=== PATIENT | female | born 2000 | race Two or more races ===

== ENCOUNTER → 2024-04-19 | Outpatient (CLI) | payer MEDICAID, SELFPAY ==
--- NOTE | 2024-04-19 16:20 | XR_ITS ---
Examination: Complete OB ultrasound greater than 14 weeks Date and time of exam: April 19, 2024 1632 hours INDICATIONS: Diagnosis supervision of normal Findings: Viable intrauterine single fetus with single amniotic sac presentation breech Cardiac motion 1:30 BPM Placenta anterior grade 2 Umbilical cord insertion 3 vessel seen Adequate amniotic fluid spine anterior Cervix 3.8 cm Ovaries obscured by bowel gas. Composite estimated gestational age based on BPD, head circumference, abdominal circumference, femur length is 22 weeks 4 days Estimated weight 481 g. Survey of intracranial anatomy, spinal anatomy, abdominal anatomy, four-chamber heart performed with no abnormalities identified. Impression: Viable intrauterine gestation breech presentation.
== END | disposition home or self-care (01) ==
LOC: CDIM 16:16
PROVIDERS: Referring Provider Obstetrics & Gynecology; Visit Provider Obstetrics & Gynecology
DX: O32.1XX0 Maternal care for breech presentation, not applicable or unspecified (principal); Z3A.22 22 weeks gestation of pregnancy
CPT/HCPCS: 76805

== ENCOUNTER 2024-08-06 11:05 | Observation (INO) | payer MEDICAID, SELFPAY ==
[2024-08-06] VITALS (22 sets, daily range): BP systolic 109–136; BP diastolic 64–87; PULSE 44–78; O2SAT 85–98; BMI 46.5
--- NOTE | 2024-08-06 12:25 | XR_ITS ---
EXAMINATION: US OB biophysical profile ORDERING PROVIDER: Sylvester Muñoz MD HISTORY: variable in tracing TECHNIQUE: Multiple transabdominal sonographic images were obtained by interventional radiology technologist and submitted for interpretation. COMPARISON: 04/19/2024, OB ultrasound. FINDINGS: FETUS: [place]. PRESENTATION: Cephalic. HEART MOTION: 148 beats/min. AMNIOTIC FLUID INDEX: 10.4 cm BREATHING MOVEMENT: 2 . GROSS BODY MOVEMENT: 2 . TONE: 2 . QUALITATIVE AMNIOTIC FLUID VOLUME: 2 TOTAL BIOPHYSICAL PROFILE: 8 of 8 . IMPRESSION: Single live intrauterine gestation with biophysical profile 8 of 8.
== END 2024-08-06 13:15 | disposition home or self-care (01) ==
PROVIDERS: Admitting Provider Obstetrics & Gynecology; Visit Provider Obstetrics & Gynecology
DX: Z34.83 Encounter for supervision of other normal pregnancy, third trimester (principal); Z3A.38 38 weeks gestation of pregnancy
CPT/HCPCS: 59025; 59899; 76819

== ENCOUNTER 2024-08-08 05:25 | Observation (INO) | payer MEDICAID, SELFPAY ==
[2024-08-08 05:30] VITALS: BMI 46.9
[2024-08-08 05:31] VITALS: TEMP 36.8
[2024-08-08 05:38] VITALS: BP 126/82; PULSE 75; RESP 18; RESP 98; TEMP 36.8
== END 2024-08-08 06:13 | disposition home or self-care (01) ==
PROVIDERS: Admitting Provider Obstetrics & Gynecology; Visit Provider Obstetrics & Gynecology
DX: O36.8130 Decreased fetal movements, third trimester, not applicable or unspecified (principal); O46.93 Antepartum hemorrhage, unspecified, third trimester; Z3A.38 38 weeks gestation of pregnancy
CPT/HCPCS: 59899

== ENCOUNTER 2024-08-10 14:02 | Inpatient (IN) | payer MEDICAID, SELFPAY ==
[2024-08-10] VITALS (40 sets, daily range): BP systolic 109–189; BP diastolic 56–123; PULSE 71–128; RESP 16–99; TEMP 36.5–36.7; O2SAT 93–98
--- NOTE | 2024-08-10 12:37 | XR_ITS ---
Examination: Biophysical profile, ultrasound Date and time of exam: August 10, 2024 1255 hours INDICATIONS: Abnormal heart tracing today Technique: Multiple transabdominal sonographic images of the pelvis abdomen obtained. Attention is directed to the breathing movement, gross body movement, amniotic fluid volume and tone. Findings: Amniotic fluid index 8.9 cm Cardiac motion 140 BPM Total biophysical profile is 8 of 8. breathing movement is 2. Gross body movement is 2. tone is 2. Qualitative amniotic fluid volume is 2 Impression: Biophysical profile is 8 of 8.
[2024-08-10 15:07] LABS: Basophils % (Auto) 0 % (0-2.5); Eosinophils # (Auto) 0.1 Thou/mm3 (0.0-0.5); Eosinophils % (Auto) 1 % (0-10); Hematocrit 40.4 % (36.0-46.0); Hemoglobin 14.2 g/dL (12.0-16.0); Immature Granulocytes % (Auto) 1 % (0-0); Immature Granulocytes Auto 0.05 Thou/mm3 (0.00-0.00); Lymphocytes % (Auto) 19 % (10-50); Mean Corpuscular HGB Conc 35.1 g/dl (31.0-37.0); Mean Corpuscular Hemoglobin 31.3 pg (25.0-35.0); Mean Corpuscular Volume 89 fL (80-100); Monocytes # (Auto) 0.7 Thou/mm3 (0.0-0.8); Monocytes % (Auto) 7 % (0-12); Neutrophils # (Auto) 7.9 Thou/mm3 (1.8-7.7); Neutrophils % (Auto) 73 % (37-80); Nucleated Red Blood Cell % 0 /100 WBC (0); Platelet Count 245 Thou/mm3 (140-440); RDW Standard Deviation 40.5 fL (36.4-46.3); Red Blood Count 4.53 Miln/mm3 (4.00-5.20); White Blood Count 10.9 Thou/mm3 (3.6-11.0)
[2024-08-10] MEDS: RINGERS LACTATED 1000 ML 1,000 ML 125 ML IV (15:31)
[2024-08-10 15:53] LABS: Syphilis Nonreactive (Nonreactive)
[2024-08-10] MEDS: OXYTOCIN in NS 20 units 20 UNIT/1,000 ML BAG 125 UNIT IV (17:18)
--- NOTE | 2024-08-10 17:45 | PD.LDHP ---
Documentation for date of: 08/10/24 OB Labor/Induct. HPI History of Present Illness Chief complaint: Sent over from the office for possible category 2 tracing, 4 cm dilated : 4 Para: 3 Term pregnancies: 3 pregnancies: 0 Living children: 3 History of Abortions: Spontaneous and Elective: 0 History of Vaginal deliveries: 3 History of sections: No History of : No LINDA: 08/18/24 Gestational Age (weeks): 38 Gestational Age (days): 6 History of present illness: Patient is a 23-year-old -0-0-3 sent over from [facility] for some concerns about a possible category 2 tracing. Patient felt some dizziness in triage and the machine hand checked her and she was 4 cm she was feeling some cramping pain. She was admitted in early labor. History of Present Dating criteria: LMP confirmed by 2nd trimester US Adequate Care: Yes Ultrasounds: normal mid trimester US Obstetrical complications: other (Elevated maternal BMI of 44) Medical complications: other (Maternal morbid obesity) Labs Maternal Blood Type: A Pos Labs: Positive: Rubella Titre and Negative: RPR, Hepatitis B, HIV, Chlamydia, Gonorrhea and Group Beta Strep Review of Systems Constitutional Comments: Patient reported good movement, no loss of fluids, no heavy vaginal bleeding. She reported cramping pain mostly in her back on presentation. Past Medical History Surgical History SURGICAL: Negative Section Meds Home Medications and Allergies Home Medications ?Medication ?Instructions ?Recorded ?Confirmed ?Type aspirin 81 mg tablet,delayed 81 mg PO .BID 08/10/24 08/10/24 History release vit no.95-ferrous 1 tab PO QDAY 08/10/24 08/10/24 History fumarate 28 mg-folic acid 800 mcg tablet () Allergies Allergy/AdvReac Type Severity Reaction Status Date / Time No Known Allergies Allergy Verified 08/10/24 14:51 OB Exam Physical Exam Vital signs: Temp Pulse Resp BP Pulse Ox 97.7 F 87 16 117/62 94 L 08/10/24 12:23 08/10/24 17:40 08/10/24 12:23 08/10/24 17:40 08/10/24 17:17 Routine Abdominal Exam Abdominal: Present soft and normoactive bowel sounds Detailed Labor and Delivery Exam Dilation (cm): 4 Effacement (%): 80 Cervix position: mid station: -2 Consistency: medium Presentation: Vertex Membranes: intact monitor accelerations: 15x15 monitor decelerations: None head of design variability: Moderate (11-25) Tachysystole: No Contraction intensity: Mild Routine Extremities Exam Extremities: Present full ROM Routine Skin Exam Skin: Present intact, dry and warm Routine Psychiatric Exam Psychiatric: Present normal affect and normal thought process OB Results Labs 08/10/24 14:15 Labs: Short CBC 08/10/24 Range/Units 14:15 WBC 10.9 (3.6-11.0) Thou/mm3 Hgb 14.2 (12.0-16.0) g/dL Hct 40.4 (36.0-46.0) % Plt Count 245 (140-440) Thou/mm3 OB Assessment & Plan Assessment and Plan (1) Active labor at term: Status: Acute (2) Morbid obesity with BMI of 40.0-44.9, adult: Status: Acute Additional Plan Induction method: AROM Plan: augmentation and anticipate NVD Additional Plan Comment: Admit patient, if patient does not progress perform AROM and possible Pitocin augmentation if needed. Patient does not want epidural and has not had one with her other 3 deliveries.
--- NOTE | 2024-08-10 17:54 | OBDSUM_ITS ---
Data ([place]) Data Hx Section: No Maternal Blood Type: A Pos Rubella Titre: Positive RPR: Non-reactive Labs: Negative: RPR, Hepatitis B, HIV, Chlamydia, Gonorrhea and Group Beta Strep : 4 Para: 3 Term: 3 : 0 : 0 Delivery Data ([place]) Labor Data Stimulated/Augmented: No Induction: No Method: AROM ROM Date: 08/10/24 ROM Time: 14:46 Rupture Type: AROM Amniotic Fluid: Clear Delivery Data EDC: 08/10/24 EDC calculated by:: LMP/early US confirmation Labor Onset Stage 1 Date: 08/10/24 Labor Onset Stage 1 Time: 12:31 Labor Onset Stage 2 Date: 08/10/24 Labor Onset Stage 2 Time: 17:12 Delivery Date: 08/10/24 Delivery Time: 17:13 Gestational age (weeks): 38 Gestational age (days): 6 Placenta Delivery Date: 08/10/24 Placenta Delivery Time: 17:17 Length stage 2 (minutes): 2 Length stage 3 (hours): 4 Delivered by: Laura Thompson Delivery nurse: Sammi Engel Prenatal Teacher at delivery: No Support person(s) at delivery: FOB Other staff at delivery: Nursery Nurse Other staff at delivery: Stefania Borges Delivery Method Delivery: Vaginal Delivery Type: Spontaneous Presentation: Vertex Position: OA Anesthesia Type Primary Anesthesia: None Secondary Anesthesia: None Placenta Placenta Delivery: Spontaneous Placenta Cultures Obtained: No Placenta Sent for Examination: No Cord Sample: Cord Blood Obtained Episiotomy Episiotomy: None EBL Estimated blood loss (ml): 50 Umbilical Cord Umbilical Vessels: 3 Nuchal Cord: x1 Body Cord: None Additional Procedures Patient progressed to 7 cm dilation and we are having a hard time monitoring the baby so an amniotomy was performed and clear fluid was noted. The patient went on to progress from 7 cm to complete over the next 20 minutes without the aid of Pitocin. She then pushed through 1 contraction delivering a liveborn female at 1713. Findings liveborn female in the JUDI presentation with a loose nuchal cord x 1 no meconium. Apgars were 8 and 9 weight was 5 pounds 8 ounces. The placenta was complete, spontaneous and grossly normal delivering approximately 3 to 4 minutes after the baby delivered. The patient delivered over an intact perineum. EBL was 50 cc. Complications were none. Condition both mom and infa nt were in stable condition in the delivery room. Complications Complications: None Data ([place]aldana) Data order: 4 Infant Gender: Female Weight Grams: 2490 1 Minute Total: 8 5 Minute Total: 9
[2024-08-10 19:52] LABS: Amphetamine/Metham Scrn,Ur OB Negative (Negative); Benzoylecgonine Screen, Ur OB Negative (Negative); Opiate Screen,Urine OB Negative (Negative); THC Screen,Urine OB Negative (Negative)
[2024-08-11 04:05] VITALS: BP 128/84; PULSE 82; RESP 16; TEMP 36.8; O2SAT 97
[2024-08-11] MEDS: IBUPROFEN TAB 400 MG TABLET 800 MG PO (04:16)
[2024-08-11 06:02] LABS: Basophils % (Auto) 0 % (0-2.5); Eosinophils # (Auto) 0.1 Thou/mm3 (0.0-0.5); Eosinophils % (Auto) 1 % (0-10); Hematocrit 36.1 % (36.0-46.0); Hemoglobin 12.4 g/dL (12.0-16.0); Immature Granulocytes % (Auto) 1 % (0-0); Immature Granulocytes Auto 0.07 Thou/mm3 (0.00-0.00); Lymphocytes # (Auto) 2.5 Thou/mm3 (1.0-4.8); Lymphocytes % (Auto) 18 % (10-50); Mean Corpuscular HGB Conc 34.3 g/dl (31.0-37.0); Mean Corpuscular Hemoglobin 31.8 pg (25.0-35.0); Mean Corpuscular Volume 93 fL (80-100); Monocytes # (Auto) 1.1 Thou/mm3 (0.0-0.8); Monocytes % (Auto) 8 % (0-12); Neutrophils # (Auto) 10.2 Thou/mm3 (1.8-7.7); Neutrophils % (Auto) 73 % (37-80); Nucleated Red Blood Cell % 0 /100 WBC (0); Platelet Count 233 Thou/mm3 (140-440); RDW Standard Deviation 42.4 fL (36.4-46.3); White Blood Count 14.1 Thou/mm3 (3.6-11.0)
--- NOTE | 2024-08-11 07:20 | PD.LDPPPRG ---
Subjective Subjective Interval history: The patient is a 23-year-old G4 now P4004 status post vaginal delivery around 1715 last p.m. Patient is in good spirits doing well today with no complaints. No heavy bleeding no fevers. Exam Vital Signs Temp Pulse Resp BP Pulse Ox O2 Del Method 98.2 F 82 16 128/84 97 Room Air 08/11/24 04:05 08/11/24 04:05 08/11/24 04:05 08/11/24 04:05 08/11/24 04:05 08/11/24 04:05 Narrative Exam Patient is alert and oriented pleasant in no apparent distress fundus is firm below her umbilicus and nontender. Extremities show no significant edema or erythema. Objective Labs 08/11/24 05:32 Labs: Laboratory Results - last 24 hr 08/10/24 08/10/24 08/11/24 14:15 15:15 05:32 WBC 10.9 14.1 H RBC 4.53 3.90 L Hgb 14.2 12.4 Hct 40.4 36.1 MCV 89 93 MCH 31.3 31.8 MCHC 35.1 34.3 RDW Std Deviation 40.5 42.4 Plt Count 245 233 Neut % (Auto) 73 73 Lymph % (Auto) 19 18 [place] % (Auto) 7 8 Eos % (Auto) 1 1 Baso % (Auto) 0 0 Neut # (Auto) 7.9 H 10.2 H Lymph # (Auto) 2.0 2.5 Marin # (Auto) 0.7 1.1 H Eos # (Auto) 0.1 0.1 Baso # (Auto) 0.0 0.0 Immature Gran # (Auto) 0.05 H 0.07 H Absolute Nucleated RBC 0.00 0.00 Immature Gran % 1 H 1 H Nucleated RBC % 0 0 Urine Opiates Screen Negative U Amphetamin/Meth Scrn Negative U Cocaine Metab Screen Negative U Marijuana (THC) Screen Negative Syphilis Serology Nonreactive Blood Type A Positive Antibody Screen NEGATIVE Blood Bank Wristband ID Yes Assessment & Plan Problem List (1) Morbid obesity with BMI of 40.0-44.9, adult: Problem details: Encouraged healthy eating and weight loss. Encouraged exercise . Status: Acute (2) care following vaginal delivery: Problem details: Probable discharge later this afternoon. Status: Acute Plan Comment Plan Comment: Discharge later this afternoon. Time Spent With Patient Time: Total time spent is greater than 50% in coordination of care (as documented) at patient's floor/unit and/or counseling patient: Time with patient: less than 15 minutes
[2024-08-11] MEDS: DOCUSATE SOD 100 MG CAPSULE PO (08:16)
[2024-08-11 08:20] VITALS: BP 112/75; PULSE 79; RESP 17; TEMP 36.9; O2SAT 97
[2024-08-11 12:20] VITALS: BP 98/67; PULSE 71; RESP 17; TEMP 37; O2SAT 98
[2024-08-11 16:10] VITALS: BP 120/82; PULSE 75; RESP 15; TEMP 36.7; O2SAT 97
--- NOTE | 2024-08-11 17:34 | ESDS_ITS ---
DS: Providers Provider Date of admission: 08/10/24 14:02 Primary care physician: Physician No Primary/Family Admitting Provider: Laura Thmopson MD ([facility]) Attending Provider on Admission: Laura Thompson MD ([facility]) Consults: 08/10/24 18:55 Referral Routine Comment: Attending Provider on DC: Laura Thompson MD ([facility]) Discharging Provider: Laura Thompson MD ([facility]) Anticipated date of discharge: 08/11/24 DS: Diagnosis Discharge Diagnosis (1) Morbid obesity with BMI of 40.0-44.9, adult: Status: Acute Assessment & Plan: Encouraged healthy eating and exercise (2) care following vaginal delivery: Status: Acute Assessment & Plan: No intercourse tampons douching or bathtubs for 6 weeks Problem List Completed Was Problem List Reviewed/Reconciled?: Yes Summary/Hosp Course Brief History: Patient is a 23-year-old -0-0-3 sent over from [facility] for some concerns about a possible category 2 tracing. Patient felt some dizziness in triage and the pin cleaner checked her and she was 4 cm she was feeling some cramping pain. She was admitted in early labor. Peripartum Data Delivery Method: Normal Vaginal Delivery Episiotomy Description: None Laceration Description: no Procedures: over an intact perineum complications: none Status at Discharge Cognitive/behavioral status at discharge: Alert and oriented x 3 Functional status at discharge: independent ambulation Overall status at discharge: patient is progressing back to baseline Time Spent with Patient Time attestation: Total time spent providing and/or coordinating discharge services: Time spent: Less than 30 minutes Specific discharge activities: Call for heavy vaginal bleeding, severe postpa rtum depression, fevers chills or other concerns. Follow-up with [facility] Exam Vital Signs Temp Pulse Resp BP Pulse Ox O2 Del Method 98.1 F 75 15 120/82 97 Room Air 08/11/24 16:10 08/11/24 16:10 08/11/24 16:10 08/11/24 16:10 08/11/24 16:10 08/11/24 16:10 Narrative Exam Patient is alert and alert and oriented x 3 in no apparent distress fundus is firm nontender extremities show no edema or erythema Discharge Plan Plan Patient Disposition: HOME (Self Care) Disposition Comment: stable Prescriptions/Referrals Prescriptions/Med Rec: No Action albuterol sulfate [Ventolin HFA] 90 mcg/actuation HFA aerosol inhaler 1 inh inhalation QID PRN (Reason: shortness of breath or wheezing) Qty: 8.5 0RF aspirin 81 mg tablet,delayed release (DR/EC) 81 mg PO .BID Patient Comments: TAKE 2 TABLETS BY MOUTH EVERY DAY PNV cmb#95-ferrous fumarate-FA [] 28 mg iron- 800 mcg tablet 1 tab PO QDAY Patient Comments: TAKE 1 TABLET BY MOUTH EVERY DAY fluticasone propion-salmeterol [Advair HFA] 230-21 mcg/actuation HFA aerosol inhaler 2 puff inhalation BID Qty: 12 0RF albuterol sulfate [Ventolin HFA] 90 mcg/actuation HFA aerosol inhaler 2 puff inhalation Q6H PRN (Reason: shortness of breath or wheezing) Qty: 8.5 3RF Referrals: No Primary/Family,Physician [Primary Care Provider] - Patient/Caregiver Discharge Instructions Discharge Activity: activity as tolerated Other Discharge Activity Instructions:: Pelvic rest x 6 weeks Other Discharge Diet Instructions: General diet Education Materials: After a Vaginal , Understanding Blues, Nutrition While Print Language: Bangladeshi Stand Alone Forms: Bethanie Award Info., Patient Portal Info Letter Planned Discharge Date 08/11/24
== END 2024-08-11 17:50 | disposition home or self-care (01) | DRG 560 ==
LOC: S4S1 14:30 → S4SX 14:30 → S4NX 19:38
PROVIDERS: Admitting Provider Obstetrics & Gynecology; Referring Provider Obstetrics & Gynecology; Visit Provider Obstetrics & Gynecology
DX: O99.214 Obesity complicating childbirth (principal); O69.81X0 Labor and delivery complicated by cord around neck, without compression, not applicable or unspecified; Z37.0 Single live birth; E66.01 Morbid (severe) obesity due to excess calories; Z3A.38 38 weeks gestation of pregnancy; O26.893 Other specified pregnancy related conditions, third trimester; R42 Dizziness and giddiness
CPT/HCPCS: 36415; 59025; 59409; 76819; 80307; 85025; 86780; 86850; 86900; 86901; 94762; J2590; J7120; A9270

== ENCOUNTER 2025-01-12 15:16 | Emergency (ER) | payer MEDICAID, SELFPAY ==
[2025-01-12 15:19] VITALS: BP 118/77; PULSE 71; RESP 18; TEMP 36.4; O2SAT 95
[2025-01-12 15:20] VITALS: BMI 42.0
--- NOTE | 2025-01-12 15:37 | XR_ITS ---
Examination: Knee, right , 3 views Technique: Knee AP, lateral, oblique 3 views Date and time of exam: January 12, 2025, 1710 hours INDICATIONS: Jumping injury to the knee today, knee pain. FINDINGS: Comminuted fractures involving the intercondylar spine of the proximal tibia There is displacement of fracture fragments, the largest fracture fragment measures 14 mm on the lateral view Femoral condyles patella and fibula appear intact IMPRESSION: Comminuted fractures proximal tibia through the intercondylar spine region Consider CT scan knee without contrast followup
--- NOTE | 2025-01-12 15:37 | XR_ITS ---
Examination: Right femur 2 views TECHNIQUE: AP lateral right femur 2 views Date and time: January 12, 2025, 1712 hours INDICATIONS: Jumping injury to the leg today, femur pain. FINDINGS: No acute right hip fracture or dislocation Shaft of the femur are intact IMPRESSION: No acute femur fracture. Please see the knee report
--- NOTE | 2025-01-12 15:37 | XR_ITS ---
Examination: Tibia-Fibula, right , 2 views Technique: Tibia-fibula AP lateral 2 views Date and time of exam: January 12, 2025 1710 hours INDICATIONS: Jumping injury to the lower leg today, lower leg pain. FINDINGS: Comminuted acute fractures proximal tibia through the intercondylar spine region with displaced fracture fragments The main shafts of the tibia-fibula appear intact IMPRESSION: Comminuted fractures proximal tibia through the intercondylar spine region
--- NOTE | 2025-01-12 15:39 | PD.EDEXREM ---
ED Extremity Problem RME/HPI General Chief complaint: Extremity Injury, Lower Stated complaint: RIGHT KNEE INJURY Time Seen by Provider: 01/12/25 15:36 Source: patient and EMS Arrival date/time: 01/12/25 15:16 Mode of arrival: EMS Limitations: no limitations RME / HPI RME / HPI Narrative: 24-year-old female was brought in by EMS for right knee pain. She states she was at home, she was standing on the counter, she jumped off her counter, landed on her feet, and developed excruciating right knee pain. She became nonambulatory that point. She denies any head strike or back injury. She had no loss of consciousness. She has no chest or thoracic pain. She has no open wounds or gross deformities. She denies any chronic medical history. Has no drug allergies. She was given fentanyl 50 mcg en route and states that her pain has not improved. Related Data Home Medications ?Medication ?Instructions ?Recorded ?Confirmed aspirin 81 mg tablet,delayed 81 mg PO .BID 08/10/24 08/10/24 release vit no.95-ferrous 1 tab PO QDAY 08/10/24 08/10/24 fumarate 28 mg-folic acid 800 mcg tablet () Previous Rx's ?Medication ?Instructions ?Recorded albuterol sulfate 90 mcg/actuation 1 inh inhalation QID PRN shortness 09/20/23 aerosol inhaler (Ventolin HFA) of breath or wheezing #8.5 grams albuterol sulfate 90 mcg/actuation 2 puff inhalation Q6H PRN 01/31/24 aerosol inhaler (Ventolin HFA) shortness of breath or wheezing #8.5 grams fluticasone propionate 230 2 puff inhalation BID #12 grams 01/31/24 mcg-salmeterol 21 mcg/actuation HFA inhaler (Advair HFA) hydrocodone 5 mg-acetaminophen 325 2 tab PO Q8H PRN pain #20 tabs 01/12/25 mg tablet Allergies Allergy/AdvReac Type Severity Reaction Status Date / Time No Known Allergies Allergy Verified 01/12/25 15:59 Review of Systems Review of Systems Systems Reviewed: All systems reviewed, normal except as documented ED Exam General Limitations: Present no limitations General appearance: Present alert and in no apparent distress Head Head exam: Present atraumatic Eye Eye exam: Present normal appearance, PERRL and EOMI ENT ENT exam: Present normal exam, normal oropharynx and mucous membranes moist Neck Neck exam: Present normal inspection, full ROM and trachea midline Chest Chest inspection: Present normal inspection and symmetric chest wall rise Respiratory Respiratory exam: Present normal lung sounds bilaterally Cardiovascular Cardiovascular exam: Present regular rate and normal rhythm Abdominal Exam Abdominal exam: Present soft and normal bowel sounds Extremities Exam Extremities exam: Present other (Patient is tender to mild palpation of the right knee. There is no gross deformities or open wounds.) Back Exam Back exam: Present normal inspection and full ROM Neurological Exam Neurological exam: Present alert and oriented X3 Psychiatric Psychiatric exam: Present normal affect and normal mood Skin Skin exam: Present warm, dry, intact and normal color Course Quality Measures none Orders Category Date Time Status splint [Splint / Immobilizer] STAT Care 01/12/25 18:[address] knee RT wo con Stat Exams 01/12/25 18:00 Completed XR femur RT 2V Stat Exams 01/12/25 15:37 Completed XR knee RT 3V Stat Exams 01/12/25 15:37 Completed XR tibia fibula RT 2V Stat Exams 01/12/25 15:37 Completed CBC Stat Lab 01/12/25 16:15 Completed CMP [Comprehensive Metabolic Panel] Stat Lab 01/12/25 16:15 Completed HCG,Qualitative Serum Stat Lab 01/12/25 16:15 Completed Morphine Inj Med 01/12/25 15:37 Discontinued 4 mg IVP X1 ONE Vital Signs Vital signs: Vital Signs Temperature 97.6 F 01/12/25 15:19 Pulse Rate 71 01/12/25 15:19 Respiratory Rate 18 01/12/25 15:19 Blood Pressure 118/77 01/12/25 15:19 Pulse Oximetry (%) 95 01/12/25 15:19 Oxygen Delivery Method Room Air 01/12/25 15:19 Extremity Problem MDM Narrative MDM Narrative:: 24-year-old female was brought in by EMS for right knee pain. She states she was at home, she was standing on the counter, she jumped off her counter, landed on her feet, and developed excruciating right knee pain. She became nonambulatory that point. She denies any head strike or back injury. She had no loss of consciousness. She has no chest or thoracic pain. She has no open wounds or gross deformities. She denies any chronic medical history. Has no drug allergies. She was given fentanyl 50 mcg en route and states that her pain has not improved. On exam, patient is nontoxic-appearing. Vital signs are stable. Distal pedal pulses are intact. Patient has tenderness to the right knee. Exam is limited secondary to pain. Plain films were obtained which reveal comminuted tibial fractures and CT was requested to better define the injury. Patient was reassessed and states she still having discomfort. This was discussed with nursing staff and her morphine was again requested. Dr. Pichardo with orthopedics was contacted at 1800 p.m., case discussed. Dr. Pichardo recommends knee immobilizer with outpatient follow-up. Patient was informed of her test results and the treatment plan. A knee immobilizer was placed. She is given crutches. Patient will use Tylenol and ibuprofen for comfort. She will also be given a prescription of [place] to help with breakthrough pain. Patient data External records reviewed:: EMS form Clinical information provided by:: patient and EMS Social determinants that could affect healthcare access:: none Patient has the following chronic illnesses:: n/a How is presenting disease/condition affected by chronic disease/condition?: no chronic disease Evaluation data The following diagnostics were reviewed and interpreted by me:: radiology exam(s) Lab and/or radiology exams considered but not ordered:: n/a Interpretation Summary: Comminuted tibial fracture Medications / Prescriptions Medications or Prescriptions considered but not ordered:: n/a Medication administrations:: Medication Administration History Discontinued Medications Morphine Sulfate (Morphine Sulf Inj 10 Mg/Ml Vial) 4 mg IVP X1 ONE Stop: 01/12/25 15:38 Last Admin: 01/12/25 19:13 Dose: 4 mg Documented By: LIBERTY See above Consultations Consultation(s) initiated? (list below): Yes Diagnosis Extremity Problem Differential Diagnosis: other (Knee fracture, knee sprain) Most likely diagnosis given after review of the tests above:: Comminuted tibial fracture Admission Indicated Admission indicated?: not indicated Admission Request Was there a request for admission?: No Disposition Plan Disposition Plan: Discharge Discharge Attestation Discharge Attestation: The patient and all family members were given an opportunity to ask questions and understood the discharge instructions. Discharge instructions specifically effects, indications for sooner follow up or return to the emergency department, and the expected course of current diagnosis. Patient condition: Stable Discharge Plan Plan Patient Disposition: HOME (Self Care) Patient condition on transfer: Stable Prescriptions/Referrals Prescriptions/Med Rec: No Action albuterol sulfate [Ventolin HFA] 90 mcg/actuation HFA aerosol inhaler 1 inh inhalation QID PRN (Reason: shortness of breath or wheezing) Qty: 8.5 0RF aspirin 81 mg tablet,delayed release (DR/EC) 81 mg PO .BID Patient Comments: TAKE 2 TABLETS BY MOUTH EVERY DAY PNV no.95-ferrous fumarate-FA [] 28 mg iron- 800 mcg tablet 1 tab PO QDAY Patient Comments: TAKE 1 TABLET BY MOUTH EVERY DAY fluticasone propion-salmeterol [Advair HFA] 230-21 mcg/actuation HFA aerosol inhaler 2 puff inhalation BID Qty: 12 0RF albuterol sulfate [Ventolin HFA] 90 mcg/actuation HFA aerosol inhaler 2 puff inhalation Q6H PRN (Reason: shortness of breath or wheezing) Qty: 8.5 3RF Referrals: Yessenia Cabrera PA-C [Primary Care Provider] - In 1 week Kar Pichardo MD [Physician] - In 1 week (tibial Fx) Problem List Clinical Impression: Closed tibial fracture Patient/Caregiver Discharge Instructions Additional Instructions: - Remain nonweightbearing of your right leg until cleared by orthopedics. - Use Tylenol 500 mg to 1000 mg every 6-8 hours. - Use ibuprofen 600 mg every 8 hours. - Use the provided prescription of [place] to assist with breakthrough pain when needed. - Contact orthopedics tomorrow to schedule close follow-up appointment. - Return as needed for any worsening or emergent changes. Print Language: Bengali Stand Alone Forms: Bethanie Award Info., Patient Portal Info Letter
[2025-01-12 15:55] VITALS: PULSE 124; RESP 19; O2SAT 98; BMI 42.0
[2025-01-12 16:24] LABS: Basophils # (Auto) 0.0 Thou/mm3 (0.0-0.2); Basophils % (Auto) 0 % (0-2.5); Eosinophils # (Auto) 0.3 Thou/mm3 (0.0-0.5); Eosinophils % (Auto) 2 % (0-10); Hematocrit 44.6 % (36.0-46.0); Hemoglobin 15.3 g/dL (12.0-16.0); Immature Granulocytes Auto 0.04 Thou/mm3 (0.00-0.00); Lymphocytes # (Auto) 1.3 Thou/mm3 (1.0-4.8); Lymphocytes % (Auto) 11 % (10-50); Mean Corpuscular HGB Conc 34.3 g/dl (31.0-37.0); Mean Corpuscular Hemoglobin 31.5 pg (25.0-35.0); Mean Corpuscular Volume 92 fL (80-100); Monocytes # (Auto) 0.6 Thou/mm3 (0.0-0.8); Monocytes % (Auto) 6 % (0-12); Neutrophils # (Auto) 9.1 Thou/mm3 (1.8-7.7); Neutrophils % (Auto) 80 % (37-80); Nucleated Red Blood Cell # 0.00 Thou/mm3 (0.00-0.00); Nucleated Red Blood Cell % 0 /100 WBC (0); Platelet Count 286 Thou/mm3 (140-440); RDW Standard Deviation 40.5 fL (36.4-46.3); Red Blood Count 4.85 Miln/mm3 (4.00-5.20); White Blood Count 11.4 Thou/mm3 (3.6-11.0)
[2025-01-12 16:46] LABS: Alanine Aminotransferase 13 U/L (10-49); Albumin, Serum 4.5 gm/dL (3.5-5.0); Albumin/Globulin Ratio 2.0 (1.2-2.2); Alkaline Phosphatase 60 U/L (46-116); Anion Gap 7 (7-16); Aspartate Amino Transferase 12 U/L (0-34); BUN/Creatinine Ratio 11 Ratio (12-20); Bilirubin,Total 0.8 mg/dL (0.3-1.2); Blood Urea Nitrogen 8 mg/dL (9-23); Calcium 10.1 mg/dL (8.3-10.6); Calcium (Corrected) 10.1 mg/dL (8.5-10.1); Carbon Dioxide 25.7 mMol/L (20.0-31.0); Chloride 106 mMol/L (98-107); Creatinine (Component) 0.7 mg/dL (0.6-1.3); Estimated Creatinine Clearance 138.0 mL/min (>60); Globulin 2.2 gm/dL (2.3-3.5); Glucose 101 mg/dL (74-106); Osmolality,Calculated 275 (275-295); Potassium 4.4 mMol/L (3.4-5.1); Sodium 139 mMol/L (136-145); Total Protein 6.7 gm/dL (5.7-8.2); eGFR > 60 See Note
[2025-01-12 16:48] LABS: HCG,Qualitative Serum Negative
--- NOTE | 2025-01-12 18:00 | XR_ITS ---
Examination: CT right knee, without contrast. 2-D sagittal reconstructions. 2-D coronal reconstructions. 3-D reconstructions. Date and time of exam:January 12, 2025, 1827 hours MEDICATIONS: Injury to the knee today, knee pain CTDI: vol (mGy):17.1. DLP: (mGycm):488. Technique: Multiple 1.25 mm axial sections of the right knee without intravenous contrast. have been obtained. 2-D sagittal and coronal reconstructions have been obtained. 3-D reconstructions have been obtained. Low dose protocols were performed. One or more of the following dose reduction techniques were used; automated exposure control, adjustment of the mA and/or KV according to patient size, use of iterative reconstruction technique. Findings: Comminuted displaced fractures and the intercondylar spines and posterior tibia including the lateral tibial plateau, axial image 73 No depression of lateral tibial plateau Patella is intact Blood in the joint space Fibular head and neck intact IMPRESSION: Comminuted displaced fractures off the intercondylar spines and posterior lateral tibia including the lateral tibial plateau No depression of the lateral tibial plateau
[2025-01-12 19:12] VITALS: BP 121/86; PULSE 91; RESP 19; O2SAT 98
[2025-01-12] MEDS: MORPHINE SULF INJ 10 MG/ML VIAL 4 MG IVP ×2 (19:13→20:48)
--- NOTE | 2025-01-12 19:13 | PC.NURSE ---
Medication administered late-not given by previous nurse
[2025-01-12 19:44] VITALS: BP 152/105; PULSE 100; RESP 18; TEMP 36.6; O2SAT 99
--- NOTE | 2025-01-12 20:02 | PC.NURSE ---
Patient teaching on crutches-pt unable to demonstrate safe use, notified provider Suzanna. New order for splint.
--- NOTE | 2025-01-12 21:55 | PC.NURSE ---
Splint placed to right lower extremity by Provider and tech, cap refill less than 3 seconds, able to move toes, good color-denies numbness and tingling. agrees with discharge, has good family support system to help. crutches provided
[2025-01-12 22:15] VITALS: PULSE 73; RESP 19; TEMP 37.2; O2SAT 98
== END 2025-01-12 22:09 | disposition home or self-care (01) ==
PROVIDERS: Physician Assistant Medical; Emergency Provider Emergency Medicine; PCP Physician Assistant
DX: S82.251A Displaced comminuted fracture of shaft of right tibia, initial encounter for closed fracture (principal); X58.XXXA Exposure to other specified factors, initial encounter; Y93.39 Activity, other involving climbing, rappelling and jumping off; Y92.019 Unspecified place in single-family (private) house as the place of occurrence of the external cause
CPT/HCPCS: 36415; 73552; 73562; 73590; 73700; 80053; 84703; 85025; 96374; 99283; J2270

== ENCOUNTER 2025-01-18 21:23 | Emergency (ER) | payer MEDICAID, SELFPAY ==
[2025-01-18 21:24] VITALS: BMI 36.6
--- NOTE | 2025-01-18 22:19 | PD.EDLOWEX ---
Lower Extremity Injury RME/HPI General Chief Complaint: Extremity Injury, Upper Stated Complaint: RT HEEL PAIN Time Seen by Provider: 01/18/25 21:25 Arrival date/time: 01/18/25 21:23 This is a case of 24-year-old female with no medical history came in in the emergency room due to uncomfortable feeling on her posterior knee immobilizer patient states that she feels hot and pain on the area where the immobilizer was placed patient was seen here January 12, 2025 where she was treated for proximal tibial fracture history was reviewed the patient jumped on a counter and started to have right knee pain patient sustained the fracture patient denies any numbness weakness tingling sensation patient was given a posterior long-leg splint with still up before discharge and started to have pain and burning sensation on the right knee Limitations: no limitations Related Data Home Medications ?Medication ?Instructions ?Recorded ?Confirmed aspirin 81 mg tablet,delayed 81 mg PO .BID 08/10/24 08/10/24 release vit no.95-ferrous 1 tab PO QDAY 08/10/24 08/10/24 fumarate 28 mg-folic acid 800 mcg tablet () Previous Rx's ?Medication ?Instructions ?Recorded albuterol sulfate 90 mcg/actuation 1 inh inhalation QID PRN shortness 09/20/23 aerosol inhaler (Ventolin HFA) of breath or wheezing #8.5 grams albuterol sulfate 90 mcg/actuation 2 puff inhalation Q6H PRN 01/31/24 aerosol inhaler (Ventolin HFA) shortness of breath or wheezing #8.5 grams fluticasone propionate 230 2 puff inhalation BID #12 grams 01/31/24 mcg-salmeterol 21 mcg/actuation HFA inhaler (Advair HFA) hydrocodone 5 mg-acetaminophen 325 2 tab PO Q8H PRN pain #20 tabs 01/12/25 mg tablet Allergies Allergy/AdvReac Type Severity Reaction Status Date / Time No Known Allergies Allergy Verified 01/12/25 15:59 Review of Systems Review of Systems Systems Reviewed: All systems reviewed, normal except as documented Constitutional Constitutional: Reports system reviewed and no additional complaints, except as documented and Reports as per HPI Cardiovascular Cardiovascular: Reports system reviewed and no additional complaints, except as documented, Reports as per HPI, Denies chest pain and Denies dyspnea Respiratory Respiratory: Reports system reviewed and no additional complaints, except as documented, Reports as per HPI and Denies dyspnea Gastrointestinal Gastrointestinal: Reports system reviewed and no additional complaints, except as documented and Reports as per HPI Musculoskeletal Musculoskeletal: Reports system reviewed and no additional complaints, except as documented and Reports as per HPI Neurologic Neurologic: Reports system reviewed and no additional complaints, except as documented and Reports as per HPI Past Medical History Past Medical History NEUROLOGIC: Negative Neurological Disorders CARDIAC: Negative Cardiac Disorders or Congestive Heart Failure RESPIRATORY: Positive Asthma (self); Negative Chronic Obstructive Pulmonary Disease (COPD) GASTROINTESTINAL: Positive Gastrointestinal Disorders, Gastroesophageal Reflux Disease and Obesity; Negative Hepatitis or Colorectal Cancer GENITOURINARY: Negative Genitourinary Disorders, Renal Disease or Prostate Cancer REPRODUCTIVE: Positive Previous Pregnancies; Negative Breast Cancer or Testicular Cancer MUSCULOSKELETAL: Negative Musculoskeletal Disorders, Bone Cancer or Carpal Tunnel Syndrome ENT: Negative Cataracts ENDOCRINE: Negative Endocrine Disorders, Diabetes Mellitus Type 1 or Diabetes Mellitus Type 2 HEMATOLOGIC: Negative Blood Disorders PSYCHO/SOCIAL: Positive Recreational Drug Use, Depression and Anxiety OTHER HISTORY: Positive Hospitalization; Negative Autoimmune Disease, Down Syndrome, Developmental Delay, Shingles, Falls, Blood Transfusions, Blood Transfusion Reaction, Anesthesia Reactions, Organ Transplant, Chemotherapy, Radiation Therapy, Hyperbaric Therapy, MRSA, VRSA, Vancomycin-Resistant Enterococci, Human Immunodeficiency Virus (HIV), Chicken Pox, Measles, Mumps, Rubella (Y[place] Measles), Pertussis, Clostridium Difficile, Breast Cancer, Cervical Cancer, Colorectal Cancer, Lung Cancer, Ovarian Cancer, Prostate Cancer or Testicular Cancer Family History FAMILY HISTORY: Positive Family Respiratory Disorders; Negative Family Psychiatric Problems, Family Cardiac Disorders, Family Gastrointestinal Problems, Family Cancer, Family Surgery or Family Anesthesia Reaction Surgical History SURGICAL: Positive Tonsillectomy (self); Negative Cardiac Surgery, Open Heart Surgery, Coronary Artery Bypass Graft, Valve Replacement, Vascular Surgery, Coronary Stent, Cardiac Catheterization, Pacemaker, Angiogram, Auto Implanted Cardiovert Defib, Carotid Endarterectomy, Endocrine Surgery, Thyroidectomy, Ear Surgery, Tympanostomy Tube, Eye Surgery, Nose Surgery, Oral Surgery, Cochlear Implant, Corneal Transplant, Throat Surgery, Abdominal Surgery, Tracheostomy, Gastric Bypass Surgery, Gastrostomy, Bowel Surgery, Nephrectomy, Transurethral Resection, Joint Replacement, Amputation, Open Reduction Internal Fixation, Arthroscopy, Neurologic Surgery, Brain Shunt, Mastectomy, Lumpectomy, Hysterectomy, Tubal Ligation, Section, Vasectomy or Organ Transplant Social History SMOKING STATUS: Never smoker SECOND HAND EXPOSURE: No SUBSTANCE USE: does not use ED Exam General Limitations: Present no limitations General appearance: Present alert, in no apparent distress and other (Patient is awake alert oriented not in distress nontoxic looking well-hydrated well-nourished) Head Head exam: Present atraumatic, normocephalic and normal inspection Eye Eye exam: Present normal appearance, PERRL and EOMI ENT ENT exam: Present normal exam, normal oropharynx and mucous membranes moist Neck Neck exam: Present normal inspection, full ROM and trachea midline; Absent tenderness, meningismus, lymphadenopathy or thyromegaly Chest Chest inspection: Present normal inspection and symmetric chest wall rise; Absent tenderness Respiratory Respiratory exam: Present normal lung sounds bilaterally; Absent respiratory distress, wheezes, stridor, accessory muscle use or prolonged expiratory phase Cardiovascular Cardiovascular exam: Present regular rate, normal rhythm and normal heart sounds; Absent bradycardia, tachycardia, irregular rhythm, systolic murmur or diastolic murmur Abdominal Exam Abdominal exam: Present soft and normal bowel sounds Extremities Exam Extremities exam: Present normal inspection and full ROM Expanded Lower Extremity Exam Hip/Pelvis exam: Present normal inspection and full ROM; Absent tenderness or swelling Knee exam: Present tenderness, swelling and other (Moderate tenderness on palpation mild swelling no crepitation no deformity no prepatellar tenderness or swelling no cellulitis ROM limited pulses were full and equal capillary refill less than 2 seconds sensory intact); Absent abrasion, laceration, ecchymosis, deformity, crepitus, dislocation, erythema, effusion, anterior drawer sign, posterior draw sign, pain with valgus, laxity with valgus, pain with varus, laxity with varus or knee extension intact Lower leg exam: Present normal inspection and full ROM; Absent tenderness, swelling, abrasion, laceration, ecchymosis, deformity, crepitus, dislocation, erythema, palpable cord, Homans' sign, Achilles tendon intact or other (Negative for claudication negative for Vieyra sign) Ankle exam: Present normal inspection and full ROM; Absent tenderness or swelling Foot/toe exam: Present normal inspection and full ROM; Absent tenderness or swelling Back Exam Back exam: Present normal inspection and full ROM Neurological Exam Neurological exam: Present alert, oriented X3, CN II-XII intact, reflexes normal and other (Unstable gait due to pain on the right knee); Absent motor sensory deficit Psychiatric Psychiatric exam: Present normal affect and normal mood Skin Skin exam: Present warm, dry, intact and normal color Course Quality Measures none Orders Category Date Time Status HYDROcodone*/APAP 5/325 [[place] 5/325] Med 01/18/25 22:14 Once 1 tab PO X1 ONE Ketorolac Inj [Toradol Inj] Med 01/18/25 22:14 Once 30 mg IM X1 ONE Vital Signs Vital signs: Oxygen saturation is normal on room air Extremity Injury, Lower MDM Narrative MDM Narrative:: This is a case of 24-year-old female with no medical history came in in the emergency room due to uncomfortable feeling on her posterior knee immobilizer patient states that she feels hot and pain on the area where the immobilizer was placed patient was seen here January 12, 2025 where she was treated for proximal tibial fracture history was reviewed the patient jumped on a counter and started to have right knee pain patient sustained the fracture patient denies any numbness weakness tingling sensation patient was given a posterior long-leg splint with still up before discharge and started to have pain and burning sensation on the right knee physical examination patient is awake alert oriented not in distress not toxic looking I was able to remove the whole posterior splint and thoroughly examined the patient there is no claudication no signs and symptoms of DVT noted to have moderate tenderness on the right anterior knee with mild swelling ROM is limited due to pain pulses were full and equal capillary refill less than 2 seconds sensory intact after removing the splint patient felt relief and resolved the pain thus I did not order any more tests or imaging I do not think patient is having DVT at the time of exam I placed a right knee immobilizer which patient tolerated well patient is comfortable with the knee immobilizer no complication noted neurovascular was intact patient was given Toradol and [place] for pain which patient pain was resolved patient will follow-up with the orthopedic surgeon tomorrow for reevaluation and for any worsening symptoms return to the ER was advised patient will continue her pain medication continue RICE treatment and continue using crutches at home Patient was discharged with comfortable condition walking with stable gait. Patient verbalized no further complains explained diagnosis and answered patient question. Patient is comfortable with the proposed management plan including the need to follow up with his/her primary care physician and any specialist if applicable Discussed patient for any urgent condition or worsening sx, He/She needed to go to emergency room immediately or call 911. Patient acknowledge the responsibility to follow up as instructed and to monitor her/his symptoms. For any persistence of the symptoms for more than 3-5 days return precaution advised. Discussed the result of the test and was given printed discharge instruction Patient data External records reviewed:: [facility] previous records Clinical information provided by:: patient Social determinants that could affect healthcare access:: none Patient has the following chronic illnesses:: None How is presenting disease/condition affected by chronic disease/condition?: no chronic disease Evaluation data The following diagnostics were reviewed and interpreted by me:: other (specify) (None) Lab and/or radiology exams considered but not ordered:: None Interpretation Summary: None Medications / Prescriptions Medications or Prescriptions considered but not ordered:: Given Medication administrations:: Medication Administration History Hydrocodone Bitart/Acetaminophen (Hydrocodone/[place] 5/325 Tablet) 1 tab PO X1 ONE Stop: 01/18/25 22:15 Ketorolac Tromethamine (Ketorolac Inj 60 Mg/2 Ml Vial) 30 mg IM X1 ONE Stop: 01/18/25 22:15 Given Consultations Consultation(s) initiated? (list below): No Diagnosis Extremity Injury, Lower Differential Diagnosis: other (Knee fracture) Most likely diagnosis given after review of the tests above:: Proximal tibial fracture Admission Indicated Admission indicated?: not indicated Explain why admission is indicated or not indicated:: Not indicated Admission Request Was there a request for admission?: No Admission Attestation Admission request attestation: Not indicate Disposition Plan Disposition Plan: Discharge Discharge Attestation Discharge Attestation: The patient and all family members were given an opportunity to ask questions and understood the discharge instructions. Discharge instructions specifically effects, indications for sooner follow up or return to the emergency department, and the expected course of current diagnosis. Patient condition: Stable Discharge Plan Plan Patient Disposition: HOME (Self Care) Patient condition on transfer: Stable Prescriptions/Referrals Prescriptions/Med Rec: No Action albuterol sulfate [Ventolin HFA] 90 mcg/actuation HFA aerosol inhaler 1 inh inhalation QID PRN (Reason: shortness of breath or wheezing) Qty: 8.5 0RF aspirin 81 mg tablet,delayed release (DR/EC) 81 mg PO .BID Patient Comments: TAKE 2 TABLETS BY MOUTH EVERY DAY PNV no.95-ferrous fumarate-FA [] 28 mg iron- 800 mcg tablet 1 tab PO QDAY Patient Comments: TAKE 1 TABLET BY MOUTH EVERY DAY fluticasone propion-salmeterol [Advair HFA] 230-21 mcg/actuation HFA aerosol inhaler 2 puff inhalation BID Qty: 12 0RF albuterol sulfate [Ventolin HFA] 90 mcg/actuation HFA aerosol inhaler 2 puff inhalation Q6H PRN (Reason: shortness of breath or wheezing) Qty: 8.5 3RF hydrocodone-acetaminophen 5-325 mg tablet 2 tab PO Q8H MDD 6 PRN (Reason: pain) Qty: 20 0RF Referrals: No Primary/Family,Physician [Primary Care Provider] - In 1 week Kar Pichardo MD [Physician] - 01/18/25 (For further evaluation and treatment of proximal tibial fracture right) Problem List Clinical Impression: Fracture of proximal end of right tibia Patient/Caregiver Discharge Instructions Education Materials: ED Crutch Walking, ED Knee Immobilizer, ED Fracture, Knee, ED RICE Additional Instructions: Follow-up with your primary care physician in 2 days for reevaluation it is very important to see an orthopedic surgeon in 2 days for reevaluation and further treatment of the comminuted fracture of the right proximal tibial worsening symptoms or any emergent concerns such as numbness weakness tingling sensation call 911 or go to the nearest emergency room ice pack and warm compress as needed for pain elevate to decrease swelling keep the knee immobilizer in place until cleared by your primary care physician no weightbearing on the right knee use of crutches for immobilization is advised Print Language: Micronesian Stand Alone Forms: Bethanie Award Info., Patient Portal Info Letter PA/CECILE Supervising Physician PA/CECILE Supervising Physician: Dr. Dunn
[2025-01-18] MEDS: HYDROcodone/APAP 5/325 TABLET 1 TAB PO (22:26)
[2025-01-18 22:37] VITALS: BP 122/76; PULSE 76; RESP 16; TEMP 37; O2SAT 98
== END 2025-01-18 22:38 | disposition home or self-care (01) ==
PROVIDERS: Emergency Provider Emergency Medicine
DX: S82.101A Unspecified fracture of upper end of right tibia, initial encounter for closed fracture (principal); X58.XXXA Exposure to other specified factors, initial encounter
CPT/HCPCS: 99282; A9270

== ENCOUNTER → 2025-04-29 | Outpatient (CLI) | payer MEDICAID, SELFPAY ==
--- NOTE | 2025-04-29 16:30 | XR_ITS ---
Exam: MRI knee without contrast, right Date and time of exam: April 29, 2025, 1718 hours INDICATIONS: Patient fell December 2024 with knee fracture, comminuted fractures intercondylar spines and posterior lateral proximal tibia on CT knee study January 12, 2025 Technique: Multiple axial, coronal, and sagittal sections on the knee have been obtained. T2-Weighted sagittal, fat-suppressed images, TR 3,500, TE 62, T2 weighted coronal fat-saturated images, TR 3,500, TE 62 Proton density sagittal sections, TR 1800, TE 31. T-1 weighted coronal images, TR 524, TE 13.0 Findings: Medial meniscus anterior horn intact. Medial meniscus, body intact Posterior horn medial meniscus intact. Lateral meniscus anterior horn is intact Lateral meniscus, body peripheral horizontal linear tear Posterior horn lateral meniscus is intact Anterior cruciate ligament high-grade sprain, suspicious for complete tear at the tibial insertion Posterior cruciate ligament appears intact. Knee effusion is moderate. Quadriceps and patellar tendons appear intact. There is no evidence of tendinosis. Inflammatory change or fracture of Hoffa's fat pad is not seen. Medial patellar facet demonstrates no thinning. Lateral patellar facet cartilage demonstrates no thinning. Trochlear cartilage demonstrates no thinning. Marrow signal abnormal, subacute healing fractures proximal tibia extending to the intercondylar region and the base of the lateral tibial plateau with mild 3 mm depression lateral tibial plateau. Medial collateral ligament appears intact. No meniscocapsular separation is seen. Illiotibial band and fibular collateral ligament are intact. Biceps femoris tendons appear intact. Medial femoral condylar articular cartilage demonstrates no thinning. Lateral femoral condylar articular cartilage demonstrates no thinning. Tibial plateau cartilage demonstrates no thinning. Impression: Peripheral horizontal linear tear body of the lateral meniscus High-grade sprain anterior cruciate ligament, suspicious for complete tear at the tibial insertion of the anterior cruciate ligament Subacute healing fractures proximal tibia as above
== END | disposition home or self-care (01) ==
LOC: SMRI 16:20
PROVIDERS: PCP Physician Assistant; Referring Provider Orthopaedic Surgery; Visit Provider Orthopaedic Surgery
DX: S83.281A Other tear of lateral meniscus, current injury, right knee, initial encounter (principal); S83.511A Sprain of anterior cruciate ligament of right knee, initial encounter; S82.291A Other fracture of shaft of right tibia, initial encounter for closed fracture; W19.XXXA Unspecified fall, initial encounter
CPT/HCPCS: 73721